=== PATIENT | male | born 1945 | race Caucasian/White ===

== ENCOUNTER 2022-07-24 14:44 | Day surgery (SDC) | payer MEDICARE ==
[~2022-07-24 14:44] MED LIST: ACHYD1T PO; FLUT16SP22 NSEACH; HYDR-3874 PO; IBUP200T48 PO; LISI1TAB8 PO; NF-TYLARTH PO; NITR-33 PO
--- NOTE | 2022-07-24 14:50 | ED Upper Extremity ---
General Stated Complaint: RT SHOULDER INJ Source: patient, family Exam Limitations: no limitations History of Present Illness Date Seen by Provider: Jul 24, 2022 Time Seen by Provider: 14:41 Initial Comments 76-year-old male presents the emergency department today for right shoulder pain. He fell out of bed a week ago. He has had pain since that time. He is having difficulty moving it secondary to pain. He has been using aspirin without much relief. No other injuries. Allergies and Home Medications Allergies Coded Allergies: Sulfa (Sulfonamide Antibiotics) (Unverified Allergy, Unknown, HIVES, 09/06/14) iodine (Unverified Allergy, Unknown, RASH, 09/06/14) Patient Home Medication List Home Medication List Reviewed: Yes Acetaminophen (Tylenol Arth Pain (Non-Formulary)) 650 Mg Cplt, 650 MG PO QID, (Reported) Entered as Reported by: CARI MCCLELLAN on 09/06/14 1126 Fluticasone Propionate (Flonase Nasal [place]) 16 Gm Naspr, 2 SPRAYS NSEACH DAILY, (Reported) Entered as Reported by: CARI MCCLELLAN on 09/06/14 1126 Hydrocodone/Acetaminophen (Lorcet 5-325 mg Tablet) 1 Each Tablet, 1-2 TAB PO Q4H PRN for PAIN Prescribed by: CYNTHIA MATHUR on 10/03/14 0937 Ibuprofen (Ibuprofen) 200 Mg Tablet, 200 MG PO Q8H, (Reported) Entered as Reported by: ISAEL TOPETE on 09/28/14 1110 Lisinopril/Hydrochlorothiazide (Lisinopril-Hctz 20-12.5 Tablet) 1 Tab Tablet, 1 TAB PO DAILY, (Reported) Entered as Reported by: CARI MCCLELLAN on 09/06/14 1126 Review of Systems Constitutional: no symptoms reported EENTM: no symptoms reported Respiratory: no symptoms reported Cardiovascular: no symptoms reported Gastrointestinal: no symptoms reported Genitourinary: no symptoms reported Musculoskeletal: joint pain Skin: no symptoms reported Psychiatric/Neurological: No Symptoms Reported Past Fpewuee-Ofolmb-Koymez Hx Patient Social History Tobacco Use?: Yes Use of E-Cig and/or Vaping dev: No Substance use?: No Alcohol Use?: No Past Medical History Kidney Stones Arthritis Hearing Impairment: Hard of Hearing Adverse Reaction/Blood Tranf: No Family Medical History Reviewed Nursing Family Hx No Pertinent Family Hx Physical Exam Vital Signs Vital Signs - First Documented 07/24/22 07/24/22 14:45 15:50 Temp 36.9 Pulse 101 Resp 18 B/P (MAP) 132/64 (86) Pulse Ox 97 O2 Delivery Room Air O2 Flow Rate 15.00 Capillary Refill : Height, Weight, BMI Height: 5'8.00" Weight: 265lbs. oz. 120.137356lf; BMI Method: General Appearance: WD/WN, no apparent distress HEENT: normal ENT inspection, pharynx normal Neck: non-tender, full range of motion, supple, normal inspection Cardiovascular: regular rate, rhythm, no murmur Respiratory: chest non-tender, lungs clear, normal breath sounds, no respiratory distress, no accessory muscle use Gastrointestinal: normal bowel sounds, non tender, soft, no organomegaly Back: normal inspection, no vertebral tenderness Shoulder: bone tenderness (Tenderness to palpation of the right shoulder joint. This is worse with abduction of the shoulder. There is no obvious deformity. Neurovascular motor and sensory intact.) Elbow/Forearm: normal inspection, non-tender, no evidence of injury Wrist: Yes normal inspection, Yes non-tender, Yes no evidence of injury Hand: normal inspection, non-tender, no evidence of injury Neurologic/Tendon: normal sensation, normal motor functions, normal tendon functions Neurologic/Psychiatric: alert, normal mood/affect, oriented x 3 Skin: normal color, warm/dry Procedures/Interventions Splinting and Joint Reduction : Pre-Proc Neuro Vasc Exam: normal Post-Proc Neuro Vasc Exam: normal Joint Reduction Site: shoulder (R) Reduction Attempts: 2 Pre-Procedure NV Exam: Yes post joint reduction film: joint not reduced Progress Procedural sedation: End-tidal CO2, cardiac monitors, blood pressure every 2 minutes and oxygen saturation were closely monitored. All of this is normal prior to the procedure. He is placed on oxy mask for the entirety of the proced ure. Ended up having to the sedation twice for 2 different reductions. Initially he received 100 mg of propofol and tolerated this well. No hypoxia, brief hypotension immediately after the procedure which resolved within 1 to 2 minutes. No interventions performed. The second time again 50 mg of propofol. He tolerated this well without complication. Each time he is back to his normal mental baseline, alert and oriented. Progress/Results/Core Measures Results/Orders My Orders Orders - CIPRIANO HUSSEIN DO Shoulder 3 View Right (07/24/22 14:47) Ed Iv/Invasive Line Start (07/24/22 15:20) Fentanyl Inj (Sublimaze Injection) (07/24/22 15:30) Propofol Injection (Diprivan Injection) (07/24/22 15:30) Conscious Sedation (07/24/22 15:30) Vital Signs-Conscious Sedation (07/24/22 15:30) Shoulder 1 View Right (07/24/22 15:58) Ns Iv 1000 Ml (Sodium Chloride 0.9%) (07/24/22 16:07) Medications Given in ED Current Medications Medications Dose Ordered Sig/Mae Route Start Time Stop Time Status Last Admin Dose Admin Fentanyl Citrate 50 mcg ONCE ONCE IVP 07/24/22 15:30 07/24/22 15:31 DC 07/24/22 15:50 50 MCG Propofol 100 mg ONCE ONCE IV 07/24/22 15:30 07/24/22 15:31 DC 07/24/22 15:51 100 MG Vital Signs/I&O 07/24/22 07/24/22 07/24/22 07/24/22 14:45 15:50 16:02 16:02 Temp 36.9 36.9 36.9 Pulse 101 101 73 Resp 18 18 21 B/P (MAP) 132/64 (86) 162/99 (120) Pulse Ox 97 97 97 O2 Delivery Room Air OxyMask OxyMask OxyMask O2 Flow Rate 15.00 15.00 15.00 15.00 15.00 Departure Communication (Admissions) I tried 2 times with procedural sedation to reduce the right shoulder. Unfortunately I was unable to do so. I spoke with Dr. Barr. He request the patient transfer via private vehicle down to the emergency department in [place]. I contacted the providers there to let them know he is coming. They will call Dr. Barr on his arrival and he will be evaluated by orthopedics in the ER. He is hemodynamically stable, neurovascular motor and sensory intact. He tolerated sedation well without complication. Radiologist does read that there is a Aichele Hill-Sachs type deformity as well. Impression Primary Impression: Dislocation of shoulder, right, closed Qualified Codes: S43.004A - Unspecified dislocation of right shoulder joint, initial encounter Disposition: 30 STILL A PATIENT Condition: Stable Departure-Patient Inst. Referrals: FABI ALLEN MD (PCP) Primary Care Physician Patient Instructions: Procedural Sedation, Adult ED CIPRIANO HUSSEIN DO Jul 24, 2022 14:50
[2022-07-24] MEDS ORDERED: fentaNYL INJ 100 MCG/2 ML AMP IVP ONE (15:30)
[2022-07-24] MEDS ORDERED: proPOfol 200 MG/20 ML (DIPRIVAN) VIAL IV ONE ×3 (15:30→18:24)
--- NOTE | 2022-07-24 15:30 | Diagnostic Imaging Report ---
SHOULDER 3 VIEW RIGHT INDICATION: Right shoulder pain, fall week ago. COMPARISON: None available. TECHNIQUE: Three views of right shoulder. FINDINGS: Anterior dislocation of the humeral head relative to the glenoid. There are fragments of bone around the posterior aspect of the glenoid rim which are likely fragments of the posterior aspect of the humeral head as there is a Hill-Sachs deformity present. No osseous [place] is appreciated. No appreciable avulsion fracture in the greater tuberosity on this exam. 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 IMPRESSION: 1. Anterior shoulder dislocation. 2. Hill-Sachs deformity of the humeral head with numerous small ossific fragments that may arise from the Hill-Sachs fracture. Dictated by: Dictated on workstation # [id number]
[2022-07-24] MEDS ORDERED: NS IV 1000 ML 0 ML ONE (16:07)
--- NOTE | 2022-07-24 16:23 | Diagnostic Imaging Report ---
SHOULDER 1 VIEW RIGHT INDICATION: Right shoulder dislocation. Postreduction imaging. COMPARISON: Earlier same day at 03:08 p.m. FINDINGS AND IMPRESSION: 1. There remains anterior dislocation of the humeral head which may be engaged upon the glenoid. 2. The small fracture fragments around the glenoid are unchanged. Dictated by: Dictated on workstation # [id number]
--- NOTE | 2022-07-24 18:18 | Progress Note-Pre Operative ---
Pre-Operative Progress Note Date of Available H&P: Jul 24, 2022 Date H&P Reviewed: Jul 24, 2022 Time H&P Reviewed: 18:17 Changes from last HP none Pre-Operative Diagnosis: right shoulder dislocation SHI CASSIDY MD Jul 24, 2022 18:17
--- NOTE | 2022-07-24 18:18 | Progress Note-Post Operative ---
Post-Operative Progess Note Surgeon (s)/Field Care Manager (s) Surgeon SHI CASSIDY MD Field Care Manager: Jered Harden Pre-Operative Diagnosis right shoulder dislocation Post-Operative Diagnosis right shoulder dislocation Procedure & Operative Findings Date of Procedure 07/24/22 Procedure Performed/Findings closed reduction of the right glenohumeral joint Anesthesia Type GETA Estimated Blood Loss Estimated blood loss (mL): none Specimens/Packing Specimens Removed none Packing: none SHI CASSIDY MD Jul 24, 2022 18:18
[2022-07-24] MEDS ORDERED: ONDANSETRON 4 MG/2 ML (SDV) Z0FRAN ONE (18:24)
[2022-07-24] MEDS ORDERED: fentaNYL INJ 100 MCG/2 ML AMP ONE (18:24)
[2022-07-24] MEDS ORDERED: LIDOCAINE PF 2% 5 ML (XYLOCAINE) VIAL ONE (18:24)
[2022-07-24] MEDS ORDERED: SUCCINYLCHOLINE INJ 20 MG/1 ML 10 ML VIAL ONE (18:24)
[2022-07-24] MEDS ORDERED: ROCURONIUM 50 MG/5 ML (ZEMURON) VIAL IV ONE (18:24)
[2022-07-24] MEDS ORDERED: HYDROcodone/APAP 7.5 MG/325 MG (LORTAB, LORCET PLUS) TABLET PO PRN (19:15)
[2022-07-24] MEDS ORDERED: SEVOFLURANE (ULTANE) 15 ML INHAL SOLN ONE (19:30)
[2022-07-24] MEDS ORDERED: LACTATED RINGERS 1,000 ML IV PRN (19:30)
[2022-07-24 19:34] VITALS: BP 140/84
[2022-07-24 19:40] VITALS: BP 122/82
[2022-07-24 19:50] VITALS: BP 124/83
[2022-07-24 20:00] VITALS: BP 127/80
[2022-07-24 20:10] VITALS: BP 128/82
--- NOTE | 2022-07-24 21:48 | HISTORY AND PHYSICAL ---
DATE OF SERVICE: 07/24/2022 ADMISSION HISTORY AND PHYSICAL REASON FOR ADMISSION: Right shoulder dislocation. HISTORY OF PRESENT ILLNESS: The patient is a 76-year-old hand dominant gentleman who fell out of his bed a week ago. He has had right shoulder pain for the last week, but his talked him going into the emergency department today. He presented to the [place] [facility] emergency department, where attempts at closed reduction were made by the ER doctor. These were unsuccessful; therefore, he was transferred here for definitive care. REVIEW OF SYSTEMS: No chest pain, no shortness of breath. No dysuria. ALLERGIES: SULFA AND IODINE. MEDICATIONS: 1. Acetaminophen. 2. Flonase. 3. Ibuprofen. 4. Lisinopril. PAST MEDICAL HISTORY: Significant for short-term memory loss, hypertension. PHYSICAL EXAMINATION: GENERAL: The patient is well-developed, well-nourished male, in minimal distress. He holds his right shoulder in a supported position. HEENT: Normocephalic, atraumatic. Pupils are equal, round and reactive to light. Oropharynx is clear. NECK: Supple. No lymphadenopathy. LUNGS: Clear to auscultation bilaterally. HEART: Regular rate and rhythm. ABDOMEN: Soft, nontender, nondistended. EXTREMITIES: The patient is able to extend his MCP joints of his fingers, abduct his fingers, flex and extend the IP joint of his thumb. He has intact sensation in the axillary, radial, ulnar and median distribution. Radiographs reveal an anteriorly dislocated glenohumeral joint. IMPRESSION: Anterior glenohumeral joint dislocation. PLAN: Closed versus open with reduction of the right shoulder. Discussed risks, benefits, options, ramifications and recovery with the patient and his family. They understand and wished to proceed. Job ID: [id number] DocumentID: [id number] Dictated Date: 07/24/2022 18:21:17 Metal Room Dental Technician Date: 07/24/2022 21:46:00 Dictated By: SHI CASSIDY MD
[2022-07-24 22:55] VITALS: BP 115/93
--- NOTE | 2022-07-25 01:13 | OPERATIVE REPORT ---
DATE OF SERVICE: 07/24/2022 PREOPERATIVE DIAGNOSIS:. Right shoulder glenohumeral joint dislocation. POSTOPERATIVE DIAGNOSES: Right shoulder glenohumeral joint dislocation. PROCEDURE: Right shoulder closed reduction. SURGEON: Kelvin Cassidy MD ASSEMBLER TUBING: RADHA Victor ANESTHESIA: General endotracheal by Arianne Marvin CRNA. ESTIMATED BLOOD LOSS: Not applicable. DRAINS: None. COMPLICATIONS: None. POSTOPERATIVE PLAN: Sling wear for 2 weeks. The patient was transferred to recovery room awake and stable condition. STATEMENT OF MEDICAL NECESSITY: The patient is a 76-year-old gentleman who fell at home a week ago. He refused to come into the emergency department by his 's report. He presented to an outside facility today. He was found to have a glenohumeral dislocation, attempts at closed reduction were unsuccessful and was transferred here for definitive care. The patient was neurovascularly intact grossly on exam. DESCRIPTION OF PROCEDURE: After risks and benefits of procedure were discussed and questions were answered. Informed consent signed and placed on chart. The operative site was confirmed in the preoperative holding initialed by surgeon. The patient was then transferred to the operating room and after adequate levels of general endotracheal anesthetic were obtained, a timeout was called, confirming the operative site. Closed reduction was performed by performing traction and with countertraction, the shoulder reduced and the glenohumeral joint was taken through range of motion and found to be stable. Fluoroscopy in the AP and lateral planes revealed well-reduced glenohumeral joint. The patient was placed in a sling and transferred to the recovery room awake and stable condition. Job ID: [id number] DocumentID: [id number] Dictated Date: 07/24/2022 19:25:26 Agricultural Real Estate Agent Date: 07/25/2022 01:12:00 Dictated By: KELVIN CASSIDY MD
--- NOTE | 2022-07-25 14:22 | Anesthesia-General Post-Op ---
General Significant Intra-Op Events Notes late entry 07/24/22 @ 1999 Patient Condition Mental Status/LOC: Same as Preop Cardiovascular: Satisfactory Nausea/Vomiting: Absent Respiratory: Satisfactory Pain: Controlled Complications: Absent Post Op Complications Complications None Follow Up Care/Instructions Patient Instructions None needed. Anesthesia/Patient Condition Patient Condition Patient is doing well, no complaints, stable vital signs, no apparent adverse anesthesia problems. No complications reported per nursing. MOSES ORDOÑEZ CRNA Jul 25, 2022 14:22
[2022-07-25] MEDS ORDERED: ACHD5005 PO (14:29)
== END 2022-07-24 22:55 | disposition home or self-care (01) ==
LOC: EDUNIT# 14:44 → ER FS 14:46 → SDC 17:53
PROVIDERS: ATTEND Orthopaedic Surgery
DX: S43.004A Unspecified dislocation of right shoulder joint, initial encounter (principal); E66.01 Morbid (severe) obesity due to excess calories; F17.220 Nicotine dependence, chewing tobacco, uncomplicated; W06.XXXA Fall from bed, initial encounter
CPT/HCPCS: 73020; 73030; 76000; 96374; 96375

== ENCOUNTER 2022-07-28 17:24 | Emergency (ER) | payer MEDICARE ==
[~2022-07-28 17:24] MED LIST changes: +ACHD5005 PO
[2022-07-28] MEDS ORDERED: NS IV 1000 ML 1,000 ML IV STA ×3 (17:33→18:13)
[2022-07-28 17:50] LABS: BASOPHILS # (AUTO) 0.1 10^3/uL (0.0-0.1); BASOPHILS % (AUTO) 0 % (0-10); EOSINOPHILS % (AUTO) 0 % (0-10); HEMATOCRIT 41 % (40-54); HEMOGLOBIN 13.4 g/dL (13.3-17.7); LYMPHOCYTES # (AUTO) 1.6 10^3/uL (1.0-4.0); LYMPHOCYTES % (AUTO) 6 % (12-44); MEAN CORPUSCULAR HEMOGLOBIN 30 pg (25-34); MEAN CORPUSCULAR HGB CONC 33 g/dL (32-36); MEAN CORPUSCULAR VOLUME 90 fL (80-99); MEAN PLATELET VOLUME 9.1 fL (9.0-12.2); MONOCYTES # (AUTO) 2.5 10^3/uL (0.0-1.0); MONOCYTES % (AUTO) 9 % (0-12); NEUTROPHILS # (AUTO) 25.2 10^3/uL (1.8-7.8); NEUTROPHILS % (AUTO) 85 % (42-75); PLATELET COUNT 548 10^3/uL (130-400); WHITE BLOOD COUNT 29.7 10^3/uL (4.3-11.0)
--- NOTE | 2022-07-28 18:01 | ED General ---
General Stated Complaint: UNRESPONSIVE,DISORIENTED Source of Information: Patient, EMS, Spouse Exam Limitations: Other (decreased responsiveness so EMS and were independent historians to add information and history on the patient and his presentation) History of Present Illness Date Seen by Provider: Jul 28, 2022 Time Seen by Provider: 17:24 Initial Comments 76-year-old male presenting with EMS from home due to decreased responsiveness over the last 2 to 3 days. The had told EMS that he was not as active and was not eating and drinking normally in the last 2 or 3 days. Since he seems to be worse today she had called EMS to have him evaluated. He was answering questions but was slow to respond and was somnolent. According to EMS on arrival his O2 sat was in the upper 80% range on room air. For EMS he is also currently in atrial fibrillation with RVR and a heart rate in the 120s to 140s. He was placed on 4 L by nasal cannula but was breathing through his mouth. He had IV started and IV fluids initiated for his atrial fibrillation with RVR. He had recently had a shoulder dislocation on the right side that required him to be transferred to [facility] for reduction by Orthopedic surgery on Jul 25, 2022. reports that yesterday and today he was not as active and was more somnolent. Timing/Duration: 1-2 Days Severity: Severe Associated Systoms: No Chest Pain; Cough, Diaphoresis, Loss of Appetite, Malais e; No Nausea/Vomiting; Shortness of Air, Weakness Allergies and Home Medications Allergies Coded Allergies: Sulfa (Sulfonamide Antibiotics) (Unverified Allergy, Unknown, HIVES, 09/06/14) iodine (Unverified Allergy, Unknown, RASH, 09/06/14) Patient Home Medication List Home Medication List Reviewed: Yes Acetaminophen (Tylenol Arth Pain (Non-Formulary)) 650 Mg Cplt, 650 MG PO QID, (Reported) Entered as Reported by: CARI MCCLELLAN on 09/06/14 1126 Fluticasone Propionate (Flonase Nasal [place]) 16 Gm Naspr, 2 SPRAYS NSEACH DAILY, (Reported) Entered as Reported by: CARI MCCLELLAN on 09/06/14 1126 Hydrocodone/Acetaminophen (Lorcet 5-325 mg Tablet) 1 Each Tablet, 1-2 TAB PO Q4H PRN for PAIN Prescribed by: CYNTHIA MATHUR on 10/03/14 0937 Hydrocodone/Acetaminophen (Hydrocodone-Acetamin 5-325 mg) 5 Mg-325 Mg Tablet, 1 TAB PO Q4H PRN for PAIN-MODERATE (5-7) Prescribed by: MARINA PARK on 07/25/22 1431 Ibuprofen (Ibuprofen) 200 Mg Tablet, 200 MG PO Q8H, (Reported) Entered as Reported by: ISAEL TOPETE on 09/28/14 1110 Lisinopril/Hydrochlorothiazide (Lisinopril-Hctz 20-12.5 Tablet) 1 Tab Tablet, 1 TAB PO DAILY, (Reported) Entered as Reported by: CARI MCCLELLAN on 09/06/14 1126 Review of Systems Review of Systems Constitutional: diaphoresis; No fever; malaise, weakness EENTM: no symptoms reported Respiratory: cough Cardiovascular: palpitations Gastrointestinal: loss of appetite Genitourinary: decreased output Musculoskeletal: see HPI, joint pain (right shoulder pain with recent dislocation) Psychiatric/Neurological: See HPI Past Yybkmem-Jwvueo-Osvgry Hx Immunizations Up To Date First/Initial COVID19 Vaccinat: Yes Second COVID19 Vaccination Micheal: Yes Past Medical History Surgery/Hospitalization HX: HTN; Arthritis; Chronic Diarrhea; Short term Memory problems. Currently Using CPAP: No Currently Using BIPAP: No Kidney Stones Arthritis Hearing Impairment: Hard of Hearing Adverse Reaction/Blood Tranf: No Family Medical History No Pertinent Family Hx Physical Exam Vital Signs Vital Signs - First Documented 07/28/22 07/28/22 07/28/22 18:23 18:35 19:00 Pulse 134 Resp 28 B/P (MAP) 70/46 Pulse Ox 96 O2 Delivery Nasal Cannula O2 Flow Rate 3.00 Capillary Refill : Height, Weight, BMI Height: 5'8.00" Weight: 265lbs. oz. 120.929388ud; BMI Method: General Appearance: Chronically ill, Moderate Distress, Obese HEENT: PERRL/EOMI; No Moist Mucous Membranes (dry mucous membranes) Neck: Full Range of Motion, Normal Inspection, Non Tender, Supple Respiratory: Chest Non Tender, Accessory Muscle Use, Decreased Breath Sounds, Respiratory Distress Cardiovascular: Normal Peripheral Pulses, Irregularly Irregular, Tachycardia Gastrointestinal: Normal Bowel Sounds, No Pulsatile Mass, Non Tender, Soft Extremity: Normal Capillary Refill, Normal Inspection, No Pedal Edema Neurologic/Psychiatric: No Oriented x3 (oriented to person and place); Other (Patient is somnolent and slow to answer questions.) Skin: Cool, Diaphoresis Focused Exam Sepsis Stage: Septic Shock Possible Source: Genitouriary Lactate Level 07/28/22 17:38: Lactic Acid Level 2.53*H 07/28/22 19:33: Lactic Acid Level 2.18*H Time of Focused Exam: 19:00 Respiratory: Chest Non Tender, No Respiratory Distress, Accessory Muscle Use, Decreased Breath Sounds Cardiovascular: Normal Peripheral Pulses, Irregularly Irregular, Tachycardia Capillary Refill: Less Than 3 Seconds Peripheral Pulses: 2+ Carotid (R), 2+ Carotid (L), 2+ Radial Pulses (R), 2+ Radial Pulses (L) Skin: warm/dry Lactic Acid Level Laboratory Tests Test 07/28/22 17:38 07/28/22 19:33 Lactic Acid Level 2.53 MMOL/L (0.50-2.00) *H 2.18 MMOL/L (0.50-2.00) *H Within 3hrs of presentation: Admin fluids, Admin 30ml/kg IBW due to BMI>30, Admin ABX, Blood cultures prior to ABX's, Focus exam, Lactate level, Other (Norepinephrine infusion for blood pressure) Progress/Results/Core Measures Suspected Sepsis SIRS Temperature: Pulse: Respiratory Rate: Laboratory Tests 07/28/22 17:38: White Blood Count 29.7H Blood Pressure / Mean: 07/28/22 17:38: Lactic Acid Level 2.53*H 07/28/22 19:33: Lactic Acid Level 2.18*H Laboratory Tests 07/28/22 17:38: Creatinine 6.07H, Platelet Count 548H, Total Bilirubin 0.4 Results/Orders Lab Results Laboratory Tests Test 07/28/22 17:38 07/28/22 17:41 07/28/22 17:56 07/28/22 18:53 Range/Units White Blood Count 29.7 H 4.3-11.0 10^3/uL Red Blood Count 4.49 4.30-5.52 10^6/uL Hemoglobin 13.4 13.3-17.7 g/dL Hematocrit 41 40-54 % Mean Corpuscular Volume 90 80-99 fL Mean Corpuscular Hemoglobin 30 25-34 pg Mean Corpuscular Hemoglobin Concent 33 32-36 g/dL Red Cell Distribution Width 13.6 10.0-14.5 % Platelet Count 548 H 130-400 10^3/uL Mean Platelet Volume 9.1 9.0-12.2 fL Immature Granulocyte % (Auto) 1 % Neutrophils (%) (Auto) 85 H 42-75 % Lymphocytes (%) (Auto) 6 L 12-44 % Monocytes (%) (Auto) 9 0-12 % Eosinophils (%) (Auto) 0 0-10 % Basophils (%) (Auto) 0 0-10 % Neutrophils # (Auto) 25.2 H 1.8-7.8 10^3/uL Lymphocytes # (Auto) 1.6 1.0-4.0 10^3/uL Monocytes # (Auto) 2.5 H 0.0-1.0 10^3/uL Eosinophils # (Auto) 0.0 0.0-0.3 10^3/uL Basophils # (Auto) 0.1 0.0-0.1 10^3/uL Immature Granulocyte # (Auto) 0.2 H 0.0-0.1 10^3/uL Neutrophils % (Manual) 82 % Lymphocytes % (Manual) 9 % Monocytes % (Manual) 7 % Eosinophils % (Manual) 0 % Basophils % (Manual) 0 % Band Neutrophils 2 % Toxic Granulation 1+ Sodium Level 135 135-145 MMOL/L Potassium Level 4.6 3.6-5.0 MMOL/L Chloride Level 94 L 98-107 MMOL/L Carbon Dioxide Level 21 21-32 MMOL/L Anion Gap 20 H 5-14 MMOL/L Blood Urea Nitrogen 96 H 7-18 MG/DL Creatinine 6.07 H 0.60-1.30 MG/DL Estimat Glomerular Filtration Rate 9 BUN/Creatinine Ratio 16 Glucose Level 116 H 70-105 MG/DL Lactic Acid Level 2.53 *H 0.50-2.00 MMOL/L Calcium Level 9.0 8.5-10.1 MG/DL Corrected Calcium 10.0 8.5-10.1 MG/DL Magnesium Level 2.6 H 1.6-2.4 MG/DL Total Bilirubin 0.4 0.1-1.0 MG/DL Aspartate Amino Transf (AST/SGOT) 67 H 5-34 U/L Alanine Aminotransferase (ALT/SGPT) 25 0-55 U/L Alkaline Phosphatase 66 40-136 U/L Troponin I < 0.30 <0.30 NG/ML C-Reactive Protein 51.20 H <0.50 MG/DL Pro-B-Type Natriuretic Peptide 7499.0 H <450.0 PG/ML Total Protein 6.8 6.4-8.2 GM/DL Albumin 2.7 L 3.2-4.5 GM/DL Influenza Type A (RT-PCR) Not Detected Not Detecte Influenza Type B (RT-PCR) Not Detected Not Detecte SARS-CoV-2 RNA (RT-PCR) Not Detected Not Detecte Urine Color BROWN H Urine Clarity CLOUDY Urine pH 5.0 5-9 Urine Specific Tracy >=1.030 1.016-1.022 Urine Protein NEGATIVE NEGATIVE Urine Glucose (UA) NEGATIVE NEGATIVE Urine Ketones TRACE H NEGATIVE Urine Nitrite POSITIVE H NEGATIVE Urine Bilirubin 2+ H NEGATIVE Urine Urobilinogen 0.2 < = 1.0 MG/DL Urine Leukocyte Esterase TRACE H NEGATIVE Urine RBC (Auto) NEGATIVE NEGATIVE Urine RBC NONE /HPF Urine WBC 10-25 H /HPF Urine Squamous Epithelial Cells 5-10 /HPF Urine Crystals NONE /LPF Urine Bacteria LARGE H /HPF Urine Casts PRESENT /LPF Urine Hyaline Casts 2-5 H /LPF Urine Mucus N /LPF Urine Culture Indicated YES Blood Gas Puncture Site LT RADIAL Blood Gas Patient Temperature 37.5 Arterial Blood pH 7.32 *L 7.37-7.43 Arterial Blood Partial Pressure CO2 37 35-45 MMHG Arterial Blood Partial Pressure O2 63 L 79-93 MMHG Arterial Blood HCO3 19 L 23-27 MMOL/L Arterial Blood Total CO2 20.2 L 21.0-31.0 MMOL/L Arterial Blood Oxygen Saturation 90 L 94-100 % Arterial Blood Base Excess -6.4 L -2.5-2.5 MMOL/L Jeronimo Test UNABLE Blood Gas Ventilator Setting NO Blood Gas Inspired Oxygen 4 LITERS Test 07/28/22 19:33 Range/Units Lactic Acid Level 2.18 *H 0.50-2.00 MMOL/L My Orders Orders - JERMAINE ZALDIVAR MD Cbc With Automated Diff (07/28/22 17:33) Comprehensive Metabolic Panel (07/28/22 17:33) Blood Culture (07/28/22 17:33) Ua Culture If Indicated (07/28/22 17:33) Chest 1 View Ap/Pa Only (07/28/22 17:33) Ed Iv/Invasive Line Start (07/28/22 17:33) Crp Fs (07/28/22 17:33) Lactic Acid Analyzer (07/28/22 17:33) Ct Head Wo (07/28/22 17:33) Ns Iv 1000 Ml (Sodium Chloride 0.9%) (07/28/22 17:33) Covid 19 Inhouse Test (07/28/22 17:33) Influenza A And B By Pcr (07/28/22 17:33) Isolation Central Supply Req (07/28/22 17:33) Everett Cath (07/28/22 17:35) O2 (07/28/22 17:35) Arterial Blood Gas (07/28/22 17:35) Troponin I Fs (07/28/22 17:37) Magnesium (07/28/22 17:37) Probnp Fs (07/28/22 17:37) Ns Iv 1000 Ml (Sodium Chloride 0.9%) (07/28/22 17:39) Manual Differential (07/28/22 17:38) Norepinephrine 8 Mg/250 Ml (Norepinephri (07/28/22 18:09) Ns Iv 1000 Ml (Sodium Chloride 0.9%) (07/28/22 18:13) Norepinephrine 8 Mg/250 Ml (Norepinephri (07/28/22 18:13) Ceftriaxone 1 Gm Pre-Mix (Rocephin 1 Gm (07/28/22 18:13) Vancomycin Injection (Vancomycin Injecti (07/28/22 18:13) Urine Culture (07/28/22 17:56) Lactated Ringers (Lr 1000 Ml Iv Solution (07/28/22 19:59) Vital Signs/I&O 07/28/22 07/28/22 07/28/22 07/28/22 18:23 18:35 19:00 20:36 Pulse 134 129 115 Resp 28 20 B/P (MAP) 70/46 115/34 (61) 109/86 Pulse Ox 96 96 O2 Delivery Nasal Cannula Room Air Nasal Cannula O2 Flow Rate 3.00 4.00 07/29/22 00:00 Intake Total 3300 ml Balance 3300 ml Capillary Refill : Progress Note #1: Progress Note Potential life-threatening diagnosis of intracranial hemorrhage, stroke, sepsis, myocardial infarction, renal failure, liver failure, pulmonary embolism, UTI, pneumonia, COVID, influenza. Place patient on cardiac monitor tech to watch for rate and rhythm. My initial interpretation of his cardiac telemetry shows he is in atrial fibrillation with rapid ventricular response and heart rate varying from 110s to 140s. Ordered electrocardiogram to evaluate his rate and rhythm and look for ischemic changes. Establish IV access in addition to the peripheral IV from EMS and obtain blood to send for cultures, lactic acid, complete blood count, comprehensive metabolic profile, troponin, proBNP, CRP, coagulation factors. Place Everett catheter to monitor input and output and send urine for analysis to look for signs of infection. Chest x-ray to look for signs of pneumonia, effusion, infiltrate, heart failure. CT scan of the head to evaluate for possible intracranial hemorrhage, acute stroke, brain mass, sinusitis. Administer normal saline 1 L IV fluid bolus from EMS and after establishing a second IV access will start a second liter of normal saline IV fluid bolus for his hypotension and atrial fibrillation with RVR. Nasal swab was also sent to check for influenza and COVID. Order arterial blood gas looking for his acid- base balance and hypoxia as well as if he was retaining CO2. Progress Note #2: Time: 18:18 Progress Note Complete blood count shows white blood cells of 29.7 thousand with a left shift of 85% neutrophils. His hemoglobin was not showing anemia as it came back at 13.4. His platelets were elevated at 548 which could be a reactive process to infection and stress. His lactic acid came back at 2.53. His comprehensive metabolic profile showed his sodium and potassium were in a normal range and not showing acute abnormality. His renal function showed a BUN of 96 and creatinine of 6.07. This would go along with acute kidney injury and acute renal failure. This might be more related to hydration since he had elevated BUN and creatinine. His initial troponin was less than 0.3 which would help to indicate that he was not suffering from an acute myocardial infarction since his symptoms had been worsening over the last 2 days. His C-reactive protein was elevated at 51.2 which would go along with infection and stress reaction. He also had elevation of his proBNP up to 7499. This would go along with some extra stress on his heart and heart failure. His urinalysis was showing that he had elevated specific gravity of greater than 1.030 to go along with dehydration. His urinalysis dip did show trace ketones and leukocyte Estrace as well as being positive for nitrites and 2+ bilirubin. He had 10-25 white blood cells per high-power field and large amount of bacteria per high-power field. This again would help to indicate signs of urinary tract infection. On my personal review and interpretation of his 1 view chest x-ray he did not have any acute infiltrate or pneumonia. On my review and interpretation of his CT scan of the head without contrast I did not appreciate any acute intracranial hemorrhage. His cardiac telemetry monitoring was still showing atrial fibrillation with RVR. His electrocardiogram also confirmed atrial fibrillation with RVR. He was showing improvement with the saline fluid bolus as his blood pressures were improving but he was still under 100 systolic for his blood pressure. In addition to adding a 3rd L of normal saline I also ordered norepinephrine as a drip to help with his blood pressure. We will start at 0.1 mcg/kg/min and titrate for goal of systolic blood pressure greater than 100. With him showing signs of sepsis from the elevated white blood cell count, hypotension, elevated lactic acid to 2.5, urinary tract infection findings, I ordered Rocephin 1 g IV as well as vancomycin 1 g IV to help cover for infections. He had recently been transferred to [facility] for closed reduction of his right shoulder dislocation under anesthesia. This was just done on July 25. His oxygen saturations was staying up on the 4 L by nasal cannula but it was placed in his mouth as he was more of a mouth breather. His arterial blood gas had shown he was compensating some as he had a normal pH of 7.32, his PCO2 was 37, PO2 of 63 on the 4 L/min. Progress Note #3: Time: 18:48 Progress Note I reviewed the radiologist report at [address] scan of the head without contrast and the 1 view chest x-ray. There was no signs of acute stroke or intracranial hemorrhage. He had small pleural effusion with atelectasis. He had improved blood pressure with the norepinephrine and the 3 L of normal saline IV fluid bolus to help treat for his septic shock. I updated the and 2 daughters about his condition and the need to transfer the patient to a hospital that had ICU as well as nephrology and cardiology. Unfortunately [facility] was on ICU diversion as well as they did not have nephrology services. I advised the family that he would need to go to a larger hospital either in [place] or [place]. They wanted me to check with [facility] in [place] first and go from there. 1908 I left a voicemail on the transfer line at [place]. I gave them basic information and the need for an ICU bed as well as the return number so that they could call me back when they were available. 1915 [facility] transfer line had called back and they are on ICU diversion. [facility] if [facility] had any beds available. I was informed that they also were on diversion and unable to accept the patient due to lack of capacity. 1917 I called the [facility] access center to check about possible transfer to [facility]. I spoke with TERESA Puente, and gave her initial information about the patient. She stated that they had beds at [facility] and she would contact the hospitalist and call me back. 1932 I spoke with nurse practitioner Mavis for the hospitalist service at [facility]. I reviewed with her the presentation of the patient and his findings for sepsis including his lab values that were indicative of UTI and sepsis. With his hypotension despite IV fluid resuscitation and requiring Levophed off of it was at a low dose I felt that he needed ICU. Since he was only on a low-dose of the Levophed she had requested we see what his blood pressures did off of that since he had had more time with the fluids and antibiotics. If he was able to tolerate not having the Levophed then they would find a telemetry bed for him if he still needed the Levophed they would get an ICU bed for him. I will call them back once we see how he tolerates not having the Levophed. 1940 shortly after stopping the Levophed patient's blood pressure dropped down to 59 systolic. This was restarted to help bring his blood pressure back up over 100 systolic. I called the [facility] access center to inform them that he would require an ICU bed. We also contacted [facility] at 1951 requesting a helicopter for air transport. Patient's heart rate did improve into the 1 teens but was still atrial fibrillation with RVR. His blood pressure did come up to 115/62 with the Levophed restarted. Med flight arrived shortly after 2029 and patient was transferred over to their equipment. 2058 patient was leaving with the flight crew from [facility] so that he could be transported to [facility]. I called and informed the [facility] access center so that they were aware that patient was leaving. The attending excepting the transfer is Dr. Melissa Shetty. ECG Initial ECG Impression Date: Jul 28, 2022 Initial ECG Impression Time: 17:46 Initial ECG Rate: 141 Initial ECG Rhythm: A Fib/Flutter Initial ECG Comparisson: No Previous ECG Available Comment My personal interpretation of his electrocardiogram shows atrial fibrillation with a rapid ventricular response and a heart rate of 141 bpm. He has no acute ST elevation. QT interval 271 ms with a QTc interval 353 ms. He has no prior electrocardiogram for comparison. Diagnostic Imaging Diagonstic Imaging: CT Plain Films/CT/US/NM/MRI: head Comments [facility] [place] [place] NAME: NUNO MOLINA [facility] REC#: [id number] PT STATUS: REG ER : 1945 PHYSICIAN: JERMAINE ZALDIVAR MD ADMIT DATE: 07/28/22/ER FS Signed Date of Exam:07/28/22 CT HEAD WO PROCEDURE: CT head without contrast. TECHNIQUE: Multiple contiguous axial images were obtained through the brain without the use of intravenous contrast. Auto Exposure Controls were utilized during the CT exam to meet ALARA standards for radiation dose reduction. INDICATION: 76-year-old male, decreased mental status. CORRELATION STUDY: None FINDINGS: Generalized atrophic changes with prominence of the ventricles and sulci. There is a prominent extra-axial cerebral spinal fluid, left slightly greater than right, likely owing to the atrophic changes. No acute intracranial hemorrhage. No midline shift or mass effect. Scattered areas of decreased attenuation likely owing to chronic small vessel ischemic disease. Mild intracranial vascular calcification without hyperdense intracranial vascular sign. Bony calvarium is intact. The visualized paranasal sinuses are generally clear. There is rather prominent abnormal soft tissue gas predominantly in the right infratemporal fossa and masseter space. Definitive penetrating type injury is not suggested. IMPRESSION: 1. Negative for acute intracranial abnormality. Generalized age-related involutional changes. 2. Incidental note of rather extensive abnormal soft tissue gas predominantly in the right infratemporal fossa and masseter space. Definitive penetrating type injury to account for this is not demonstrated. Etiology or significance is indeterminate. Possibility of iatrogenic intravascular gas is considered more remote. Dictated by: Dictated on workstation # [id number] Dict: 07/28/221829 Trans: 07/28/221934 [facility] [id number] Interpreted by: RYANNE TERRY DO Electronically signed by: RYANNE TERRY DO 07/28/221934 Reviewed: Reviewed by Me (I reviewed the radiologist report at 1848) Diagonstic Imaging: Xray Plain Films/CT/US/NM/MRI: chest Comments [facility] [place], [place] NAME: NUNO MOLINA [facility] REC#: [id number] PT STATUS: REG ER : 1945 PHYSICIAN: JERMAINE ZALDIVAR MD ADMIT DATE: 07/28/22/ER FS Signed Date of Exam:07/28/22 CHEST 1 VIEW AP/PA ONLY HISTORY: Cough and shortness of breath COMPARISON: None TECHNIQUE: Frontal view of the chest FINDINGS: Lung volumes are mildly low. There is a small left pleural effusion with associated atelectasis. The cardiac silhouette is normal in size for portable technique. No pneumothorax is seen. IMPRESSION: 1. Small left pleural effusion with associated atelectasis. Dictated by: Dictated on workstation # [id number] Dict: 07/28/221830 Trans: 07/28/221932 [facility] [id number] Interpreted by: MELISSA JIMENEZ MD Electronically signed by: MELISSA JIMENEZ MD 07/28/221932 Reviewed: Reviewed by Me (I reviewed the radiologist report at 1848) Critical Care Note Critical Care Total Time (minutes) 90 minutes Progress 90 minutes of total critical care time was spent with the patient. Time excludes separately billable procedures. Time was spent obtaining information and history from spouse,ems, medical record, ordering tests and reviewing results, ordering interventions and reviewing response, discussion with consultants, documentation in the chart. Patient was at risk of from sepsis and complete shutdown of his organs. He had required my constant direct and immediate attention during his stay in the emergency department to help stabilize his condition here and coordinate transfer to facility for more definitive treatment and higher level of care. Departure Impression Primary Impression: Sepsis Qualified Codes: A41.9 - Sepsis, unspecified organism; R65.21 - Severe sepsis with septic shock; N17.9 - Acute kidney failure, unspecified Additional Impressions: Acute kidney injury (nontraumatic) Acute cystitis with hematuria New onset atrial fibrillation Atrial fibrillation with rapid ventricular response Septic shock Disposition: XF [facility] HOSP Condition: Critical Transfer Transfer Reason: Exceeds level of care (Requires nephrology and cardiology as well as ICU for his sepsis. May require urology.) Time Spoke to Accepting Phy: 19:33 Transfer Progress Notes Discussed with nurse practitioner Mavis for hospitalist service. I reviewed the presentation of the patient as well as his vital signs and labs showing that he had UTI with sepsis and new onset of acute renal failure with atrial fibrillation with RVR. His cardiac troponin was negative for acute myocardial infarction. He had acute kidney injury with BUN up to 96 and a creatinine of 6. He was requiring IV fluids for resuscitation from his septic shock as well as he was started on Levophed at 0.1 mcg/kg/min. His blood pressure had looked improved after the Levophed and with trying to determine bed placement she had requested that we shut off the low-dose Levophed to see if his pressures would maintain. If they were maintaining off of the Levophed then he could be admitted to a telemetry bed otherwise if he was not maintaining his blood pressure and needed the Levophed to be restarted then they would place him in an ICU bed. Will call back to see how he was doing off of the Levophed. Within minutes of having the Levophed stopped his blood pressure dropped to 59 systolic. The Levophed was reinitiated and his blood pressure came up to 114 /52. I called the [facility] access center back to let them know that the patient was going to require an ICU bed as he was having to stay on the Levophed. The accepting attending for the admission will be Dr. Melissa Shetty Transfer Facility: [facility] Method of Transfer: Air Departure-Patient Inst. Referrals: FABI ALLEN MD (PCP/Family) Primary Care Physician JERMAINE ZALDIVAR MD Jul 28, 2022 18:01
[2022-07-28] MEDS ORDERED: NOREPINEPHRINE 8 MG/250 ML 250 ML IV ONE (18:09)
[2022-07-28] MEDS ORDERED: cefTRIAXone 1 GM PRE-MIX 50 ML IV STA (18:13)
[2022-07-28] MEDS ORDERED: NOREPINEPHRINE 8 MG/250 ML 250 ML IV STA (18:13)
[2022-07-28] MEDS ORDERED: VANCOMYCIN INJECTION 1,000 MG in NS (IVPB) 250 ML IV STA (18:13)
[2022-07-28 18:19] LABS: CLARITY,URINE CLOUDY; COLOR,URINE BROWN; GLUCOSE, URINE (UA) NEGATIVE (NEGATIVE); KETONES,URINE TRACE (NEGATIVE); LEUKOCYTE ESTERASE ,URINE TRACE (NEGATIVE); NITRITE,URINE POSITIVE (NEGATIVE); PROTEIN,URINE NEGATIVE (NEGATIVE)
[2022-07-28 18:33] LABS: BACTERIA,URINE LARGE /HPF; BILIRUBIN,URINE 2+ (NEGATIVE)
--- NOTE | 2022-07-28 18:37 | Diagnostic Imaging Report ---
HISTORY: Cough and shortness of breath COMPARISON: None TECHNIQUE: Frontal view of the chest FINDINGS: Lung volumes are mildly low. There is a small left pleural effusion with associated atelectasis. The cardiac silhouette is normal in size for portable technique. No pneumothorax is seen. IMPRESSION: 1. Small left pleural effusion with associated atelectasis. Dictated by: Dictated on workstation # [id number]
[2022-07-28 18:38] LABS: ALKALINE PHOSPHATASE 66 U/L (40-136); BILIRUBIN,TOTAL 0.4 MG/DL (0.1-1.0); BUN/CREATININE RATIO 16; CARBON DIOXIDE 21 MMOL/L (21-32); CHLORIDE 94 MMOL/L (98-107); CREATININE SERUM 6.07 MG/DL (0.60-1.30); GFR ESTIMATED 9; GLUCOSE 116 MG/DL (70-105); MAGNESIUM 2.6 MG/DL (1.6-2.4); POTASSIUM 4.6 MMOL/L (3.6-5.0); SODIUM 135 MMOL/L (135-145)
[2022-07-28 18:39] LABS: ALANINE AMINOTRANSFERASE 25 U/L (0-55); ALBUMIN 2.7 GM/DL (3.2-4.5); TOTAL PROTEIN 6.8 GM/DL (6.4-8.2)
--- NOTE | 2022-07-28 18:46 | Diagnostic Imaging Report ---
PROCEDURE: CT head without contrast. TECHNIQUE: Multiple contiguous axial images were obtained through the brain without the use of intravenous contrast. Auto Exposure Controls were utilized during the CT exam to meet ALARA standards for radiation dose reduction. INDICATION: 76-year-old male, decreased mental status. CORRELATION STUDY: None FINDINGS: Generalized atrophic changes with prominence of the ventricles and sulci. There is a prominent extra-axial cerebral spinal fluid, left slightly greater than right, likely owing to the atrophic changes. No acute intracranial hemorrhage. No midline shift or mass effect. Scattered areas of decreased attenuation likely owing to chronic small vessel ischemic disease. Mild intracranial vascular calcification without hyperdense intracranial vascular sign. Bony calvarium is intact. The visualized paranasal sinuses are generally clear. There is rather prominent abnormal soft tissue gas predominantly in the right infratemporal fossa and masseter space. Definitive penetrating type injury is not suggested. IMPRESSION: 1. Negative for acute intracranial abnormality. Generalized age-related involutional changes. 2. Incidental note of rather extensive abnormal soft tissue gas predominantly in the right infratemporal fossa and masseter space. Definitive penetrating type injury to account for this is not demonstrated. Etiology or significance is indeterminate. Possibility of iatrogenic intravascular gas is considered more remote. Dictated by: Dictated on workstation # [id number]
[2022-07-28 19:06] LABS: ABG BASE EXCESS -6.4 MMOL/L (-2.5-2.5); ABG OXYGEN SATURATION 90 % (94-100); ABG PCO2 37 MMHG (35-45); ABG PH 7.32 (7.37-7.43); ABG PO2 63 MMHG (79-93); ABG TCO2 20.2 MMOL/L (21.0-31.0)
[2022-07-28 19:07] LABS: ALLENS TEST UNABLE; INSPIRED O2 4 LITERS; PATIENT TEMP 37.5; VENTILATOR NO
[2022-07-28 19:53] LABS: NEUTROPHILS % (MANUAL) 82 %
[2022-07-28 19:54] LABS: BAND NEUTROPHILS 2 %; BASOPHILS % (MANUAL) 0 %; EOSINOPHILS % (MANUAL) 0 %; LYMPHOCYTES % (MANUAL) 9 %; MONOCYTES % (MANUAL) 7 %; TOXIC GRANULATION/VACUOLAZATIO 1+
[2022-07-28] MEDS ORDERED: LACTATED RINGERS 1,000 ML IV STA (19:59)
[2022-07-28 20:36] VITALS: BP 109/86
== END 2022-07-28 21:00 | disposition short-term general hospital (02) ==
LOC: EDUNIT# 17:24 → ER FS 17:27
DX: A41.9 Sepsis, unspecified organism (principal); R65.21 Severe sepsis with septic shock; N17.9 Acute kidney failure, unspecified; N30.01 Acute cystitis with hematuria; I48.91 Unspecified atrial fibrillation; I10 Essential (primary) hypertension; Z20.822 Contact with and (suspected) exposure to COVID-19
CPT/HCPCS: 36415; 51702; 70450; 71045; 80053; 81000; 82805; 83605; 83735; 83880; 84484; 85007; 85027; 86141; 87040; 87088; 87636; 93005

== ENCOUNTER 2022-12-21 12:25 | Emergency (ER) | payer MEDICARE ==
[2022-12-21 13:03] LABS: ALBUMIN 1.6 GM/DL (3.2-4.5)
[2022-12-21 13:04] LABS: POTASSIUM 4.2 MMOL/L (3.6-5.0)
[2022-12-21 13:05] LABS: CALCIUM 7.8 MG/DL (8.5-10.1)
[2022-12-21 13:06] LABS: BASOPHILS # (AUTO) 0.1 10^3/uL (0.0-0.1); BASOPHILS % (AUTO) 1 % (0-10); EOSINOPHILS # (AUTO) 0.4 10^3/uL (0.0-0.3); EOSINOPHILS % (AUTO) 4 % (0-10); HEMATOCRIT 36 % (40-54); HEMOGLOBIN 11.7 g/dL (13.3-17.7); LYMPHOCYTES # (AUTO) 2.3 10^3/uL (1.0-4.0); LYMPHOCYTES % (AUTO) 23 % (12-44); MEAN CORPUSCULAR HEMOGLOBIN 31 pg (25-34); MEAN CORPUSCULAR HGB CONC 33 g/dL (32-36); MEAN CORPUSCULAR VOLUME 97 fL (80-99); MEAN PLATELET VOLUME 9.5 fL (9.0-12.2); MONOCYTES # (AUTO) 0.8 10^3/uL (0.0-1.0); MONOCYTES % (AUTO) 8 % (0-12); NEUTROPHILS # (AUTO) 6.7 10^3/uL (1.8-7.8); NEUTROPHILS % (AUTO) 65 % (42-75); PLATELET COUNT 416 10^3/uL (130-400); WHITE BLOOD COUNT 10.4 10^3/uL (4.3-11.0)
[2022-12-21 13:08] LABS: BILIRUBIN,TOTAL 0.4 MG/DL (0.1-1.0)
[2022-12-21 13:10] LABS: CREATININE SERUM 0.81 MG/DL (0.60-1.30)
[2022-12-21 13:12] LABS: MAGNESIUM 2.1 MG/DL (1.6-2.4)
[2022-12-21 13:37] LABS: CLARITY,URINE CLEAR; COLOR,URINE YELLOW; GLUCOSE, URINE (UA) NEGATIVE (NEGATIVE); KETONES,URINE TRACE (NEGATIVE); LEUKOCYTE ESTERASE ,URINE 1+ (NEGATIVE); NITRITE,URINE NEGATIVE (NEGATIVE); PROTEIN,URINE TRACE (NEGATIVE)
--- NOTE | 2022-12-21 13:42 | ED General ---
General Chief Complaint: General Problems/Pain Stated Complaint: FAILURE TO THRIVE Nursing Triage Note: PT TO ED BY EMS FROM [facility]. WITH C/O FAILURE TO THRIVE. CARE HOME STAFF REPORTS PT HAS NOT EATEN OR DRANK ANYTHING FOR 3 WEEKS. EMS REPORTS FAMILY WANTS PT PLACED ON HOSPICE AND WAS INSTRUCTED TO COME TO ED BY PCP DR. WEISS. PT DENIES PAIN AT THIS TIME. PT ALERT TO SELF, BASELINE FOR PT. Source of Information: Patient, Caregiver, EMS, Family, Skilled Nursing Records Exam Limitations: No Limitations History of Present Illness Date Seen by Provider: Dec 21, 2022 Time Seen by Provider: 12:33 Initial Comments This 76-year-old pleasant gentleman presents to the emergency room via EMS from [facility] with primary complaint of "failure to thrive". Patient reportedly has not been eating well for months but apparently drinks well. History is obtained from nursing staff, EMS, and family are somewhat conflicting in regard to duration and symptoms. Patient himself is a limited historian due to dementia but overall voices no complaints and seems content. Patient is reportedly alert to baseline. He has not experienced any fever, vomiting, cough, diarrhea, or pain complaints. He reportedly is being referred here for work-up of "failure to thrive" and discussion regarding hospice care. skilled nursing staff reported they had concern that patient should be referred to hospice and were directed by Dr. Weiss to send him to the emergency room for evaluation and hospice consultation. Report was received from EMS. skilled nursing staff gave report to ER nursing staff which was relayed to me. I also spoke with prison staff directly and reviewed prison records. History was rather vague with different reporters giving conflicting information. History on this patient was difficult to sort through. Ultimately, it did not appear that there was actually any acute or emergent problem that needed to be addressed today. In reviewing possible causes of his anorexia, family and prison staff noted that, in retrospect, his food intake has been poor since he was discharged from the hospital 3 or 4 months ago. He was started on amiodarone at that time. Amiodarone has a known adverse effect of anorexia. Patient was prescribed Marinol but food intake has not improved. He is chronically incontinent of urine. He is stable on his usual 2 L nasal cannula with an O2 sat of 98%. CODE STATUS is full code. Allergies and Home Medications Allergies Coded Allergies: Sulfa (Sulfonamide Antibiotics) (Unverified Allergy, Unknown, HIVES, 09/06/14) iodine (Unverified Allergy, Unknown, RASH, 09/06/14) Patient Home Medication List Home Medication List Reviewed: Yes Acetaminophen (Tylenol Arth Pain (Non-Formulary)) 650 Mg Cplt, 650 MG PO QID, (Reported) Entered as Reported by: CARI MCCLELLAN on 09/06/14 1126 Fluticasone Propionate (Flonase Nasal [place]) 16 Gm Naspr, 2 SPRAYS NSEACH DAILY, (Reported) Entered as Reported by: CARI MCCLELLAN on 09/06/14 1126 Hydrocodone/Acetaminophen (Lorcet 5-325 mg Tablet) 1 Each Tablet, 1-2 TAB PO Q4H PRN for PAIN Prescribed by: CYNTHIA MATHUR on 10/03/14 0937 Hydrocodone/Acetaminophen (Hydrocodone-Acetamin 5-325 mg) 5 Mg-325 Mg Tablet, 1 TAB PO Q4H PRN for PAIN-MODERATE (5-7) Prescribed by: MARINA PARK on 07/25/22 1431 Ibuprofen (Ibuprofen) 200 Mg Tablet, 200 MG PO Q8H, (Reported) Entered as Reported by: ISAEL TOPETE on 09/28/14 1110 Lisinopril/Hydrochlorothiazide (Lisinopril-Hctz 20-12.5 Tablet) 1 Tab Tablet, 1 TAB PO DAILY, (Reported) Entered as Reported by: CARI MCCLELLAN on 09/06/14 1126 Review of Systems Review of Systems Constitutional: no symptoms reported EENTM: no symptoms reported Respiratory: no symptoms reported Cardiovascular: no symptoms reported Gastrointestinal: see HPI Genitourinary: no symptoms reported Musculoskeletal: no symptoms reported Skin: no symptoms reported Psychiatric/Neurological: No Symptoms Reported Hematologic/Lymphatic: No Symptoms Reported Immunological/Allergic: no symptoms reported Past Hmbzzjx-Aweaee-Oqawdz Hx Patient Social History Tobacco Use?: No Use of E-Cig and/or Vaping dev: No Substance use?: No Alcohol Use?: No Pt feels they are or have been: Unable to obtain Immunizations Up To Date First/Initial COVID19 Vaccinat: Yes Second COVID19 Vaccination Micheal: Yes Third COVID19 Vaccination Date: Yes Past Medical History Surgery/Hospitalization HX: HTN; Arthritis; Chronic Diarrhea; Short term Memory problems, CKD Surgeries: Yes (Adult circumcision) Adenoidectomy, Orthopedic (joint reductions under anesthesia), Rectal (ESWL), Tonsillectomy Respiratory: Yes (Chronic hypoxia, uses 2 L nasal cannula continuously) Currently Using CPAP: No Currently Using BIPAP: No Cardiac: Yes Atrial Fibrillation Neurological: Yes Dementia Genitourinary: Yes (incontinence) Benign Prostatic Hyperpl, Kidney Stones Gastrointestinal: No Musculoskeletal: Yes (joint dislocations) Arthritis Endocrine: No HEENT: Yes Hearing Impairment: Hard of Hearing Cancer: No Psychosocial: No Adverse Reaction/Blood Tranf: No Family Medical History No Pertinent Family Hx Physical Exam Vital Signs Vital Signs - First Documented 12/21/22 12:26 Temp 35.8 Pulse 64 Resp 14 B/P (MAP) 98/68 (78) Pulse Ox 99 O2 Delivery Nasal Cannula O2 Flow Rate 2.00 Capillary Refill : Less Than 3 Seconds Height, Weight, BMI Height: 5'8.00" Weight: 265lbs. oz. [id number]; BMI Method: General Appearance: No Apparent Distress, WD/WN, Obese HEENT: PERRL/EOMI, Normal ENT Inspection, Other (MMM) Neck: Normal Inspection; No JVD Respiratory: Lungs Clear, Normal Breath Sounds, No Accessory Muscle Use Cardiovascular: Regular Rate, Rhythm, No Edema, No Murmur Gastrointestinal: Normal Bowel Sounds, Non Tender, Soft; No Distended Extremity: Normal Inspection, No Pedal Edema Neurologic/Psychiatric: Alert, Disoriented, Other (Patient is alert and readily answers questions although he is disoriented. He voices no complaints. There are no focal deficits appreciated beyond his dementia which is reportedly at baseline.) Skin: Normal Color, Warm/Dry Progress/Results/Core Measures Suspected Sepsis SIRS Temperature: Pulse: 64 Respiratory Rate: 14 Laboratory Tests 12/21/22 12:48: White Blood Count 10.4 Blood Pressure 98 /68 Mean: 78 Laboratory Tests 12/21/22 12:48: Creatinine 0.81, Platelet Count 416H, Total Bilirubin 0.4 Results/Orders Lab Results Laboratory Tests Test 12/21/22 12:48 12/21/22 13:30 Range/Units White Blood Count 10.4 4.3-11.0 10^3/uL Red Blood Count 3.73 L 4.30-5.52 10^6/uL Hemoglobin 11.7 L 13.3-17.7 g/dL Hematocrit 36 L 40-54 % Mean Corpuscular Volume 97 80-99 fL Mean Corpuscular Hemoglobin 31 25-34 pg Mean Corpuscular Hemoglobin Concent 33 32-36 g/dL Red Cell Distribution Width 19.9 H 10.0-14.5 % Platelet Count 416 H 130-400 10^3/uL Mean Platelet Volume 9.5 9.0-12.2 fL Immature Granulocyte % (Auto) 1 % Neutrophils (%) (Auto) 65 42-75 % Lymphocytes (%) (Auto) 23 12-44 % Monocytes (%) (Auto) 8 0-12 % Eosinophils (%) (Auto) 4 0-10 % Basophils (%) (Auto) 1 0-10 % Neutrophils # (Auto) 6.7 1.8-7.8 10^3/uL Lymphocytes # (Auto) 2.3 1.0-4.0 10^3/uL Monocytes # (Auto) 0.8 0.0-1.0 10^3/uL Eosinophils # (Auto) 0.4 H 0.0-0.3 10^3/uL Basophils # (Auto) 0.1 0.0-0.1 10^3/uL Immature Granulocyte # (Auto) 0.1 0.0-0.1 10^3/uL Sodium Level 136 135-145 MMOL/L Potassium Level 4.2 3.6-5.0 MMOL/L Chloride Level 107 98-107 MMOL/L Carbon Dioxide Level 20 L 21-32 MMOL/L Anion Gap 9 5-14 MMOL/L Blood Urea Nitrogen 21 H 7-18 MG/DL Creatinine 0.81 0.60-1.30 MG/DL Estimat Glomerular Filtration Rate 90 BUN/Creatinine Ratio 26 Glucose Level 82 70-105 MG/DL Calcium Level 7.8 L 8.5-10.1 MG/DL Corrected Calcium 9.7 8.5-10.1 MG/DL Magnesium Level 2.1 1.6-2.4 MG/DL Total Bilirubin 0.4 0.1-1.0 MG/DL Aspartate Amino Transf (AST/SGOT) 35 H 5-34 U/L Alanine Aminotransferase (ALT/SGPT) 9 0-55 U/L Alkaline Phosphatase 82 40-136 U/L Total Protein 5.0 L 6.4-8.2 GM/DL Albumin 1.6 L 3.2-4.5 GM/DL TSH [place] Testing 2.58 0.35-4.94 UIU/ML Urine Color YELLOW Urine Clarity CLEAR Urine pH 6.0 5-9 Urine Specific [place] 1.020 1.016-1.022 Urine Protein TRACE H NEGATIVE Urine Glucose (UA) NEGATIVE NEGATIVE Urine Ketones TRACE H NEGATIVE Urine Nitrite NEGATIVE NEGATIVE Urine Bilirubin 1+ H NEGATIVE Urine Urobilinogen 0.2 < = 1.0 MG/DL Urine Leukocyte Esterase 1+ H NEGATIVE Urine RBC (Auto) 2+ H NEGATIVE Urine RBC 5-10 H /HPF Urine WBC 2-5 /HPF Urine Squamous Epithelial Cells NONE /HPF Urine Crystals NONE /LPF Urine Bacteria NEGATIVE /HPF Urine Casts PRESENT /LPF Urine Hyaline Casts RARE /LPF Urine Mucus NEGATIVE /LPF Urine Culture Indicated NO My Orders Orders - REDDY BENÍTEZ MD Cbc With Automated Diff (12/21/22 12:33) Comprehensive Metabolic Panel (12/21/22 12:33) Magnesium (12/21/22 12:33) Thyroid Analyzer (12/21/22 12:33) Ua Culture If Indicated (12/21/22 12:33) Ed Iv/Invasive Line Start (12/21/22 12:33) Vital Signs/I&O 12/21/22 12/21/22 12:26 15:08 Temp 35.8 35.8 Pulse 64 62 Resp 14 14 B/P (MAP) 98/68 (78) 110/74 Pulse Ox 99 99 O2 Delivery Nasal Cannula Nasal Cannula O2 Flow Rate 2.00 2.00 2.00 Capillary Refill : Less Than 3 Seconds Blood Pressure Mean: 78 Progress Note : Progress Note Patient was interviewed and examined. skilled nursing records were reviewed. Report was received from family, prison staff, nursing staff in the ER, and EMS. Although there is report of failure to thrive, patient appears well- hydrated and is obese. Labs were reviewed and interpreted in their entirety. CBC and CMP were mostly unremarkable. Notable abnormalities relative to this case include an albumin of 1.6 and total serum protein of 5.0. These abnormalities would suggest subacute protein malnutrition which correlates well with his history. Urinalysis demonstrated a small amount of blood which is to be expected with this catheterized specimen. Ultimately, no acute abnormality was detected requiring admission or intensive intervention. Patient arrived to the ER with expectation from family and prison staff that an assessment would be made regarding qualifications for hospice. I did have an extensive conversation with the family about this issue and recommended that they at least have a discussion with a hospice company so they are well-informed about services available and can better determine when and how to engage in hospice services. Regarding his anorexia, the causes ultimately unknown. Anorexia may be related to his dementia and or amiodarone use. I suggested discussing this issue with Dr. Weiss and determining if an alternative medication could be used instead of amiodarone. The onset of anorexia seem to correlate well with initiating amiodarone use, and amiodarone is known for the adverse effect of anorexia. I also discussed the approach to anorexia management in demented patients with the family. All questions were answered and recommendations were provided verbally and in the discharge instructions. See discharge instructions for further discussion. Patient ultimately was transferred back to the prison. There is a prolonged ER stay related to lack of available transportation. Departure Impression Primary Impression: Protein malnutrition Additional Impression: Anorexia Disposition: 01 HOME, SELF-CARE Condition: Stable Departure-Patient Inst. Decision time for Depature: 14:46 Referrals: FABI ALLEN MD (PCP/Family) Primary Care Physician Patient Instructions: Dealing With Poor Appetite From the Drugs You Take Add. Discharge Instructions: Encourage plenty of clear liquids. Consider liquid forms of protein and nutrition such as breeze, Ensure, etc. Consider changing amiodarone to a different rhythm controlling medication as amiodarone may cause anorexia and may be contributing to the poor appetite and protein malnutrition. Follow-up with Dr. Weiss as soon as possible. Return to care if there are worsening symptoms. All discharge instructions reviewed with patient and/or family. Voiced understanding. Copy Copies To 1: YUNIER WEISS JOSHUA T MD Dec 21, 2022 13:42
[2022-12-21 13:55] LABS: BACTERIA,URINE NEGATIVE /HPF; BILIRUBIN,URINE 1+ (NEGATIVE); HYALINE CASTS, URINE RARE /LPF
[2022-12-21 14:02] LABS: TSH (THYROID ANALYZER) 2.58 UIU/ML (0.35-4.94)
[2022-12-21 15:08] VITALS: BP 110/74
== END 2022-12-21 16:21 | disposition home or self-care (01) ==
LOC: EDUNIT# 12:25 → ER 12:27
DX: E46 Unspecified protein-calorie malnutrition (principal)
CPT/HCPCS: 36415; 51702; 80053; 81000; 83735; 84443; 85025